=== PATIENT | male | born 1965 | race Caucasian/White ===

== ENCOUNTER 2021-01-25 12:21 | Emergency (ER) | payer OTHER ==
[2021-01-25] MEDS ORDERED: HYDROmorphone 1 MG/ML CARPUJECT IVP STA (13:21)
[2021-01-25] MEDS ORDERED: BUFFERED LIDOCAINE 10 ML SYRINGE SUBQ STA (13:24)
[2021-01-25] MEDS ORDERED: TETANUS/DIPHTHERIA/PERTUSSIS 0.5 ML SYRINGE IM ONE (13:24)
--- NOTE | 2021-01-25 13:24 | ED Physician Documentation ---
History of Present Illness - Stated complaint Stated Complaint: FELL OFF LADDER - Chief complaint Chief Complaint: Trauma Hd/Nk - Additonal information Additional information: 55-year-old male presents to the emergency department after a workplace injury. 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 He hit hard ground. He does not think he lost consciousness. However he does have a very large laceration above the left eyebrow and is complaining of low back pain. He denies any history of previous back pain previous to this. no hx of anti coagulation. pt reports headache, low back pain and left shoulder pain Past medical history includes hypertension and diabetes. This gentleman initially presented to the walk-in clinic and then was advised to come to the ER for further evaluation. Initially he presents in a wheelchair and is able to stand and pivot to the bed with moderate assistance. Review of Systems Constitutional: reports: Reviewed and negative Eyes: reports: Reviewed and negative Ears: reports: Reviewed and negative Nose: reports: Reviewed and negative Throat: reports: Reviewed and negative Cardiac: reports: Reviewed and negative Respiratory: reports: Reviewed and negative GI: reports: Reviewed and negative : reports: Reviewed and negative Skin: reports: Laceration (s) (left forehead) Musculoskeletal: reports: Back pain, Extremity pain Neurologic: reports: Headache, Head injury. denies: Focal weakness, Numbness, Difficulty speaking, Syncope, Confused, LOC PD PAST MEDICAL HISTORY - Present Medications Home Medications: Ambulatory Orders Medication Instructions Recorded Confirmed Ibuprofen [Motrin] 600 mg PO Q6H PRN #30 tab 01/25/21 cephALEXin [Keflex] 500 mg PO Q6H #28 01/25/21 oxyCODONE [Roxicodone] 5 mg PO BID #15 tablet 01/25/21 - Allergies Allergies/Adverse Reactions: Allergies Allergy/AdvReac Type Severity Reaction Status Date / Time No Known Drug Allergies Allergy Verified 01/25/21 12:34 PD ED PE EXPANDED - General General: Alert, In Pain - Neck Neck: No tenderness, Other (No midline cervical spinous tenderness. No pain with axial loading.). No: Adenopathy, Limited ROM - Cardiac Cardiac: Regular Rate, Regular Rhythm, Radial strong equal, Cap refill < 2 sec. No: Murmur Present - Respiratory Respiratory: Clear to ausultation nelda. No: Distress, Labored - Abdomen Abdomen: Normal Bowel sounds. No: Tender to palpation - Back Back: Vertebral tenderness, Soft tissue tenderness, Other (Midline lower lumbar spinous process tenderness without crepitus or erythema. No lacerations.) - Derm Derm: Normal color, Warm and dry, Abrasion (s) (Superficial abrasions appearing old on the lower anterior calves bilaterally), Laceration(s) ( irregular 4 cm left forehead laceration above eyebrow) - Extremities Extremities: Normal, Tenderness, Left shoulder (Tenderness of the left shoulder at the proximal humerus without deformity erythema or ecchymosis. Limited range of motion secondary to pain. No clavicular deformity noted.). No: Deformity - Neuro Neuro: Alert and Oriented X 3, CNII-XII intact, Normal speech - GCS Eye Opening: Spontaneous Motor: Obeys Commands Verbal: Oriented Total: 15 Results - Vitals Vitals: Vital Signs - 24 hr 01/25/21 01/25/21 01/25/21 12:35 13:21 14:26 Temperature 97.9 C H 98.1 C H Heart Rate 67 74 67 Respiratory 18 16 14 Rate Blood Pressure 178/83 H 174/98 H 164/95 H O2 Saturation 99 98 99 Oxygen O2 Source Room air - Labs Labs: Laboratory Tests 01/25/21 01/25/21 01/25/21 13:00 13:00 13:00 WBC 9.2 RBC 5.32 Hgb 16.6 Hct 48.8 MCV 91.7 MCH 31.2 H MCHC 34.0 RDW 12.6 Plt Count 216 MPV 9.0 Neut # (Auto) 6.9 H Lymph # (Auto) 1.6 [place] # (Auto) 0.6 Eos # (Auto) 0.1 Baso # (Auto) 0.0 Absolute Nucleated RBC 0.00 Nucleated RBC % 0.0 PT 13.7 H INR 1.2 Sodium 136 Potassium 3.8 Chloride 99 L Carbon Dioxide 25 Anion Gap 12.0 BUN 24 H Creatinine 0.9 Estimated GFR (MDRD) 88 L Glucose 123 H Calcium 10.0 Total Bilirubin 1.1 H AST 33 ALT 39 Alkaline Phosphatase 64 Total Protein 8.5 H Albumin 4.9 Globulin 3.6 Albumin/Globulin Ratio 1.4 Lipase 33 - Rads (name of study) lumbar CT Radiology: Final report received (Acute right L1 transverse process fracture, nondisplaced.) Cervical CT Radiology: Final report received (No CT evidence of acute traumatic cervical spine injury.) CT head Radiology: Final report received (No acute intracranial abnormality. Fluid level in the right maxillary sinus. Correlate for acute sinusitis.) Left hip w/ pelvis XR Radiology: Final report received (No visualized acute fracture or dislocation.) Left shoulder XR Radiology: Final report received (Visualized acute fracture or dislocation. No osseous lesion.) CXR Radiology: Final report received (No acute cardiopulmonary process) Procedures - Laceration (location) left forehead Length in cm: 8 Wound type: Curved, Irregular, Into subcut fat, Contaminated Neurovascular status: Sensory intact, Motor intact Tendon involvement: Tendon intact Anesthesia: Lidocaine 1% Wound preparation: Chlorhexadine, Irrigated copiously NS, Debrided moderately Skin layer closure: Interrupted, Size #-0 - enter number (4), Sutures - enter # (14) Other: Patient tolerated well, No complications, Neurovascular intact, Dressing applied (2 lacerations totaling 8 cm in length above the left eyebrow), Tetanus booster given PD MEDICAL DECISION MAKING - ED course Complexity details: reviewed results, re-evaluated patient, considered differential, d/w patient ED course: 55-year-old male presents to the emergency department after a fall from approximately 9 feet off a ladder onto hard ground. He fell onto his left side and sustained a large 8 cm laceration to the left forehead. He was also reporting low back pain. This gentleman initially presented to a walk-in clinic and he was advised to come to the emergency department therefore he came here via private vehicle. Screening head CT shows no findings of intracranial hemorrhage or bleeding. He did not lose cosnciousness and has been alert here. he however, likely does have a concussion. CT of the neck was also unremarkable as well as chest x-ray left shoulder hip and pelvis. He did have focal tenderness of the lower lumbar spine and we did find a L1 nondisplaced transverse process fracture. Here in the emergency department 14 sutures were placed to close his head laceration. Given how extensive and contaminated it was he was given ceftriaxone and will be discharged with a prescription for cephalexin. His tetanus was updated today. Following 1 mg of Dilaudid and then 1 oxycodone tablet the patient was up and ambulating with ease with a walker. We discussed this ED visit at length. 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 He will need to follow-up with labor and industries provider. Because he lives in [place] I have advised the [facility]. This gentleman was advised to return immediately to the ER for sudden severe headaches, slurred speech focal weakness in his arms or legs or severe uncontrolled pain. We also discussed that the oxycodone that will be prescribed is sedating and addictive. Advised limited use and movement as tolerated with ibuprofen and Tylenol otherwise. He was discharged with a walker to help with ambulation at home. appropriate L&I [place] #[id number] Departure - Departure Disposition: Home, Self Care Clinical Impression: Accident at workplace Fall from ladder Qualifiers: Encounter type: initial encounter Qualified Code(s): W11.XXXA - Fall on and from ladder, initial encounter Forehead laceration Qualifiers: Encounter type: initial encounter Qualified Code(s): S01.81XA - Laceration without foreign body of other part of head, initial encounter Lumbar transverse process fracture Qualifiers: Encounter type: initial encounter Fracture type: closed Qualified Code(s): S32.009A - Unspecified fracture of unspecified lumbar vertebra, initial encounter for closed fracture Closed head injury Qualifiers: Encounter type: initial encounter Qualified Code(s): S09.90XA - Unspecified injury of head, initial encounter Condition: Stable Record reviewed to determine appropriate education?: Yes Instructions: ED Laceration Scalp Stitch Or Stap, ED Fx Transverse Spinous Process Prescriptions: cephALEXin [Keflex] 500 mg PO Q6H #28 Ibuprofen [Motrin] 600 mg PO Q6H PRN #30 tab PRN Reason: Pain oxyCODONE [Roxicodone] 5 mg PO BID #15 tablet Comments: Alf you are seen in the emergency department today after a fall from ladder at work. The CT of your head showed no bruising bleeding or fractures. CT of your neck was normal. Your chest x-ray hip and pelvis x-rays were also normal. The CT of your lumbar spine did show an L1 transverse process fracture. This is the type of fracture that simply needs time to heal and is not managed surgically. However you will hurt and be uncomfortable for at least a few weeks. I have prescribed ibuprofen to help with pain and oxycodone to be used for severe pain only. Use this very sparingly it is addictive and will cause constipation. Do not drive if taking oxycodone. If you have no bowel movements for 2 to 3 days please take MiraLAX or a stool softener. You also received 14 sutures in your left forehead. The suture should be removed in 7 days. Your tetanus was updated today. Because your scalp laceration was large enough and contaminated I would like you to fill the prescription for the cephalexin to begin taking as directed for the next week. If you have any redness, milky drainage, fever or concerns of infection, return here. You may shower normally. Please place any antibitoic ointment such as neosporin over yoru laceration 3 X a day You are not cleared to return to work until seen by labor and [facility] provider or your primary care doctor. I anticipate you will be out of work for the next 2 to 3 weeks at a minimum. Because you live in [facility] [place] there can see labor and [facility] patients in follow-up. I do recommend that you schedule an appointment for follow-up within the next week. If you develop any sudden severe headache, have slurred speech weakness in your arms or legs please return immediately to any emergency department.
[2021-01-25 13:26] LABS: BASOPHILS % (AUTO) 0.4 %; EOSINOPHILS # (AUTO) 0.1 10^3/uL (0.0-0.7); EOSINOPHILS % (AUTO) 0.6 %; HCT - HEMATOCRIT 48.8 % (42.0-52.0); HGB - HEMOGLOBIN 16.6 g/dL (14.0-18.0); LYMPHOCYTES # (AUTO) 1.6 10^3/uL (1.5-3.5); LYMPHOCYTES % (AUTO) 17.1 %; MEAN CORPUSCULAR HEMOGLOBIN 31.2 pg (27.0-31.0); MEAN CORPUSCULAR VOLUME 91.7 fL (80.0-94.0); MONOCYTES # (AUTO) 0.6 10^3/uL (0.0-1.0); MONOCYTES % (AUTO) 6.8 %; NEUTROPHILS # (AUTO) 6.9 10^3/uL (1.5-6.6); NEUTROPHILS % (AUTO) 74.7 %; PLT - PLATELET COUNT 216 10^3/uL (130-450); RED BLOOD COUNT 5.32 10^6/uL (4.70-6.10); RED CELL DISTRIBUTION WIDTH 12.6 % (12.0-15.0); WHITE BLOOD COUNT 9.2 x10^3/uL (4.8-10.8)
[2021-01-25 13:32] LABS: INR 1.2 (0.8-1.2); PT - PROTHROMBIN TIME 13.7 secs (9.9-12.6)
[2021-01-25 13:38] LABS: ALBUMIN 4.9 g/dL (3.2-5.5); ALBUMIN/GLOBULIN RATIO 1.4 (1.0-2.2); BILIRUBIN,TOTAL 1.1 mg/dL (0.2-1.0); CREATININE 0.9 mg/dL (0.6-1.2); POTASSIUM 3.8 mmol/L (3.5-5.0); TOTAL PROTEIN 8.5 g/dL (6.7-8.2)
--- NOTE | 2021-01-25 14:01 | XRAY Report ---
PROCEDURE: Hip w/Pelvis 2-3V LT INDICATIONS: pain; fall off ladder TECHNIQUE: AP pelvis with lateral view(s) of the left hip(s). COMPARISON: None. FINDINGS: Bones: No fractures or dislocations. Pelvic ring appears intact. No suspicious bony lesions. Soft tissues: The visualized bowel gas pattern is normal. No suspicious soft tissue calcifications. IMPRESSION: No visualized acute fracture or dislocation. However, occult injury cannot be excluded. Recommend short interval imaging follow-up in 7-10 days as clinically indicated for additional evalua tion. Reviewed by: Janee Galvin MD on 01/25/2021 1:00 PM SU Approved by: Janee Galvin MD on 01/25/2021 1:00 PM AKALESHA Station ID: [id number]
--- NOTE | 2021-01-25 14:01 | XRAY Report ---
PROCEDURE: Chest 1 View X-Ray INDICATIONS: chest pain TECHNIQUE: One view of the chest was acquired. COMPARISON: None FINDINGS: Surgical changes and devices: None. Lungs and pleura: No pleural effusions or pneumothorax. Lungs are clear. Mediastinum: Mediastinal contours appear normal. Heart size is enlarged. Bones and chest wall: No suspicious bony lesions. Overlying soft tissues appear unremarkable. IMPRESSION: No acute pulmonary process. Reviewed by: Janee Galvin MD on 01/25/2021 12:59 PM SU Approved by: Janee Galvin MD on 01/25/2021 12:59 PM AKDT Station ID: [id number]
--- NOTE | 2021-01-25 14:03 | XRAY Report ---
PROCEDURE: Shoulder 3 View LT INDICATIONS: pain; fall off ladder TECHNIQUE: 3 views of the shoulder were acquired. COMPARISON: None. FINDINGS: Bones: No fractures or dislocations. No suspicious bony lesions. Visualized ribs appear intact. Soft tissues: No suspicious soft tissue calcifications. IMPRESSION: No acute fracture. No osseous lesion. If symptoms and/or clinical suspicion for patholog y continue, further assessment with repeat plain films, or advanced imaging (e.g., CT, MRI, or bone s can) is recommended for further assessment. Reviewed by: Radha Davies MD on 01/25/2021 2:01 PM PDT Approved by: Radha Davies MD on 01/25/2021 2:01 PM PDT Station ID: [id number]
--- NOTE | 2021-01-25 14:08 | CT Report ---
PROCEDURE: HEAD WO INDICATIONS: fall of ladder; left frontal lac TECHNIQUE: Noncontrast 4.5 mm thick angled axial sections acquired from the foramen magnum to the vertex. For r adiation dose reduction, the following was used: automated exposure control, adjustment of mA and/or kV according to patient size. COMPARISON: None. FINDINGS: Image quality: Excellent. CSF spaces: Basal cisterns are patent. No extra-axial fluid collections. Ventricles are normal in size and shape. Brain: No midline shift. No intracranial masses or hemorrhage. Pereyra-white matter interface is norm al. Skull and face: Calvarium and visualized facial bones are intact, without suspicious lesions. Left frontal scalp laceration. Sinuses: Aerated secretions in the right maxillary sinus. Remaining partially visualized paranasal si nuses and mastoid air cells are clear. IMPRESSION: No acute intracranial abnormality. Fluid level in the right maxillary sinus. Correlate f or acute sinusitis. Reviewed by: Killian Lopez MD on 01/25/2021 2:06 PM PDT Approved by: Killian Lopez MD on 01/25/2021 2:06 PM PDT Station ID: [id number]
--- NOTE | 2021-01-25 14:10 | CT Report ---
PROCEDURE: CERVICAL SPINE WO INDICATIONS: Trauma pain; fall off ladder TECHNIQUE: Noncontrast 3 mm thick sections acquired from the skull base to the T4 level. Sagittal and coronal r eformats were then constructed. For radiation dose reduction, the following was used: automated exp osure control, adjustment of mA and/or kV according to patient size. COMPARISON: None. FINDINGS: Image quality: Excellent. Bones: No fractures or dislocations. Visualized superior ribs are intact. Multilevel multifactoria l degenerative changes. Degenerative straightening of usual cervical lordosis. Otherwise normal align ment. No listhesis, dislocation, or subluxation identified. Normal configuration of the craniocervica l junction. Soft tissues: Prevertebral soft tissues are normal in thickness. No paravertebral hematomas. No ap ical pneumothoraces. IMPRESSION: No CT evidence of acute traumatic cervical spine injury. Reviewed by: Killian Lopez MD on 01/25/2021 2:08 PM PDT Approved by: Killian Lopez MD on 01/25/2021 2:08 PM PDT Station ID: [id number]
--- NOTE | 2021-01-25 14:12 | CT Report ---
PROCEDURE: LUMBAR SPINE WO INDICATIONS: pain; fall off ladder TECHNIQUE: Noncontrast 3 mm thick sections acquired from the T12 level to the sacrum. Sagittal and coronal refo rmats were constructed. For radiation dose reduction, the following was used: automated exposure co ntrol, adjustment of mA and/or kV according to patient size. COMPARISON: None. FINDINGS: Image quality: Excellent. Bones: Acute nondisplaced fracture of the right L1 transverse process. No additional fracture. Verteb ral body heights maintained. Normal lumbar spine vertebral body alignment. Facets are congruent witho ut dislocation or subluxation. Extensive degenerative spondylitic and spondyloarthropathic changes. T12-L1: Normal in appearance. L1-L2: Normal in appearance. L2-L3: Normal in appearance. L3-L4: Normal in appearance. L4-L5: Normal in appearance. L5-S1: Normal in appearance. Soft tissues: No retroperitoneal masses or hematomas. Visualized aorta is normal in caliber. Image d portions of the lung bases are clear. Mild hepatic steatosis. IMPRESSION: Acute right L1 transverse process fracture, nondisplaced Reviewed by: Killian Lopez MD on 01/25/2021 2:11 PM PDT Approved by: Killian Lopez MD on 01/25/2021 2:11 PM PDT Station ID: [id number]
[2021-01-25] MEDS ORDERED: BUFFERED LIDOCAINE 10 ML SYRINGE IU ONE (15:20)
[2021-01-25] MEDS ORDERED: cefTRIAXone 1 GM VIAL IVP STA (15:39)
[2021-01-25] MEDS ORDERED: oxyCODONE 5 MG TABLET PO STA (15:39)
[2021-01-25 17:07] VITALS: BP 172/98
== END 2021-01-25 17:07 | disposition home or self-care (01) ==
LOC: ED 12:21
DX: S01.81XA Laceration without foreign body of other part of head, initial encounter (principal); S32.018A Other fracture of first lumbar vertebra, initial encounter for closed fracture; S09.90XA Unspecified injury of head, initial encounter; W11.XXXA Fall on and from ladder, initial encounter; Y93.H3 Activity, building and construction; Y99.0 Civilian activity done for income or pay
CPT/HCPCS: 1040M; 12054; 36415; 70450; 71045; 72125; 72131; 73030; 73502; 80053; 83690; 85025; 85610; 90471; 90715; 96374; 96375; 99284; A9270; J1170